=== PATIENT | female | born 1965 | race Caucasian/White ===

== ENCOUNTER 2018-11-14 11:45 | Observation (INO) | payer OTHER ==
[~2018-11-14] VITALS: Ht 157.5 cm; Wt 81.6 kg
[~2018-11-14 11:45] MED LIST: ACET-787 PO; ATI.5 PO; FURO-572 PO; GABA300C PO; IBUP200C97 PO; INSU100S45 SUBQ; LANTUS SUBQ; LISI-420 PO; METF500T PO; ROSU20TA1 PO
--- NOTE | 2018-11-14 11:45 | NUR ---
Patient BIBA BLS, transferred to bed 9. RN evaluating patient at bedside.
[2018-11-14 11:57] VITALS: BP 81/46
--- NOTE | 2018-11-14 11:57 | NUR ---
PT C/O GENERAL WEAKNESS AFTER BEING NON-COMPLIANT WITH MEDICATIONS X2 WEEKS. PT REPORTS FALLING 2X LAST NIGHT. 1ST AT 0230 GETTING OUT OF BED, AND HIT TOP OF HEAD ON TILE FLOOR. 2ND TIME GETTING OUT OF BED AT 0500, FELL ON RT SIDE, STATES SHE HIT RT SIDE OF HEAD BEHIND EAR. PT DENIES LOSS OF CONSCIOUSNESS, PERRLA, AAOX4. PT HAS SLURRED SPEACH FROM HISTORY OF [facility], PT IS NOT ON BLOOD THINERS. MEDHX:CVA, SPEECH DEFICIT, DM, HTN, DEPRESSION, SCHITZOPHRENIA
--- NOTE | 2018-11-14 12:05 | NUR ---
Dr. Servin evaluating patient at bedside.
[2018-11-14] MEDS ORDERED: NACL 0.9% 2,000 ML IV SCH (12:19)
--- NOTE | 2018-11-14 13:01 | NUR ---
LAB AT BEDSIDE
--- NOTE | 2018-11-14 13:33 | NUR ---
pt normotensive after 1 bolus
--- NOTE | 2018-11-14 13:35 | NUR ---
pt to CT at this time
[2018-11-14 13:42] LABS: BASOPHILS % (AUTO) 0.2 % (0.0-2.0); EOSINOPHILS # (AUTO) 0.1 K/uL (0-0.4); EOSINOPHILS % (AUTO) 1.1 % (0.0-4.0); HEMATOCRIT 32.5 % (36-48); HEMOGLOBIN 10.6 g/dL (12.0-16.0); MEAN CORPUSCULAR HEMOGLOBIN 30 pg (27-31); MEAN CORPUSCULAR HGB CONC 33 g/dL (33-37); MEAN CORPUSCULAR VOLUME 92.9 fL (80-94); MONOCYTES # (AUTO) 0.6 K/uL (0.8-1.0); MONOCYTES % (AUTO) 4.8 % (1.7-9.3); NEUTROPHILS # (AUTO) 9.8 K/uL (1.8-7.7); NEUTROPHILS % (AUTO) 71.9 % (42.2-75.2); PLATELET COUNT (AUTO) 282 K/uL (140-450); WHITE BLOOD COUNT (AUTO) 13.6 K/uL (4.8-10.8)
[2018-11-14 14:00] LABS: PROTHROMBIN TIME 9.9 secs (10.8-13.4)
--- NOTE | 2018-11-14 14:12 | NUR ---
PT RETURNED FROM CT. BP 81/36, ER MD MADE AWARE. 2 BOLUS RUNNING AT THIS TIME. PT AAOX4, O2 SAT 100%, PULSE 82.
[2018-11-14 14:13] LABS: ACETAMINOPHEN 2.9 ug/ml (10-30); ALBUMIN 3.3 g/dL (3.4-5.0); ANION GAP 16.4 (8-16); ASPARTATE AMINOTRANSFERASE 34 U/L (15-37); CARBON DIOXIDE 24.1 mmol/L (21-32); CHLORIDE 99 mmol/L (98-107); CREATININE 2.6 mg/dL (0.6-1.3); GFR ARICAN-AMERICAN 25 mL/min (>90); GLUCOSE 122 mg/dL (74-106); MAGNESIUM 1.8 mg/dL (1.8-2.4); POTASSIUM 3.5 mmol/L (3.5-5.1); SALICYLATE < 2.8 mg/dL (2.8-20.0); SODIUM SERUM 136 mmol/L (136-145); TOTAL BILIRUBIN 0.5 mg/dL (0.0-1.0); UREA NITROGEN, BLOOD 27 mg/dL (7-18)
--- NOTE | 2018-11-14 14:38 | NUR ---
PT UNABLE TO PROVIDE URINE, ER MADE AWARE.
[2018-11-14 14:43] LABS: ACETONE, SERUM NEGATIVE (NEGATIVE); CKMB RELATIVE INDEX 4.4 (0.0-2.5); CREATINE KINASE MB 27.9 ng/mL (0-3.6)
--- NOTE | 2018-11-14 15:05 | NUR ---
# 14 FR Urinary catheter inserted utilizing sterile technique. Immediate return of 500 ml CLEAR YELLOW Urine noted. Urine sample collected and sent to lab. Pt tolerated procedure WELL.
[2018-11-14 16:17] LABS: APPEARANCE,URINE CLEAR (CLEAR); BILIRUBIN,URINE 1+ (NEGATIVE); BLOOD, URINE TRACE-I (NEGATIVE); COLOR,URINE DARK YELLOW (YELLOW); LEUKOCYTE ESTERASE ,URINE NEGATIVE (NEGATIVE); NITRITE, URINE NEGATIVE (NEGATIVE); UGLUCOSE NEGATIVE (NEGATIVE)
[2018-11-14 16:28] LABS: BARBITURATE, URINE NEG. ng/ml (NEG <=200); BENZODIAZEPINE, URINE POS. ng/mL (NEG <=200); CANNABINOID, URINE NEG. ng/mL (NEG <=50); COCAINE, URINE NEG. ng/mL (NEG <=300); OPIATE, URINE POS. ng/mL (NEG <=2000); PHENCYCLIDINE SCREEN,URINE NEG. ng/mL (NEG <=25)
[2018-11-14 16:34] LABS: WBC,URINE 0-5 /HPF (0-5)
--- NOTE | 2018-11-14 17:04 | NUR ---
PT IN BED, SIDE RAILS UP X1, BED IN LOWEST POSITION, VSS. PT BP 91/55 AT THIS TIME, O2 SAT 98%. PT AAOX4. PT STATES THAT SHE IS HUMGRY AND THIRSTY. PROVIDED PT WITH ICE CHIPS AND CRACKERS AT THIS TIME. WAITING FOR ADMISSION
--- NOTE | 2018-11-14 18:20 | NUR ---
RECEIVED REPORT FROM ED RN. AOX3. NO C/O PAIN OR DISCOMFORT. STATES SHE IS "TIRED". PT IS AMBULATORY. IV SITE PATENT AND ASYMPTOMATIC. ABRASION TO RIGHT KNEE, S/P FALL PRIOR TO ADMISSION. PLACED ON FALL RISK PRECAUTIONS. OBTAINED MRSA SWAB. ALL OTHER SAFETY PRECAUTIONS IN PLACE, WILL CONTINUE TO MONITOR.
--- NOTE | 2018-11-14 18:20 | NUR ---
Patient will be admitted to care of DR MARIE. Admited to TELE VIA GURDL W/ VSS. Will go to room 110B. Belongings list completed. Report to [facility].
[2018-11-14 18:25] VITALS: BP 107/48
[2018-11-14] MEDS ORDERED: DEXTROSE 50% 50 ML SYR IVP PRN (18:40)
--- NOTE | 2018-11-14 19:25 | NUR ---
ENDORSED POC TO GRAINING PRESS OPERATOR RN. PT IN STABLE CONDITION. ENDORSED TO F/U ON HOME MEDS- NO FREQUENCY.
--- NOTE | 2018-11-14 19:26 | NUR ---
RECEIVED PT AT BEDSIDE FROM DAY SHIFT NURSEHOUSTON. PT SLEEPING IN THE BED. BREATHING EVENLY AND UNLABORED. NO S/S OF SOB OR DISCOMFORT. IV SITE ON R WRIST, SALINE LOCK. BED IN LOW POSITION. CALL LIGHT WITHIN REACH. WILL CONTINUE TO MONITOR.
[2018-11-14 20:00] VITALS: BP 113/78
[2018-11-14] MEDS: BLOOD GLUCOSE MONITORING 1 DEV DEV FS SCH (20:30)
[2018-11-14] MEDS: INSULIN LISPRO SLIDING SCALE 100 UNITS/ML VIAL SUBQ PRN (20:37)
[2018-11-14] MEDS ORDERED: MORP30CE21 PO (20:55)
[2018-11-14] MEDS ORDERED: TIZA4CAP PO (21:05)
[2018-11-14] MEDS ORDERED: TRAZ-343 PO (21:05)
[2018-11-14] MEDS ORDERED: FLUO20TA35 PO (21:05)
[2018-11-14] MEDS ORDERED: BUS5 PO (21:05)
--- NOTE | 2018-11-14 21:54 | NUR ---
CALLED DR. MARIE FOR PT C/O PAIN, STATED OK TO CONTINUE/ ORDER NORCO 10/325MG Q6H PRN PAIN. WILL PUT IN ORDER AND CONTINUE WITH ORDERS.
--- NOTE | 2018-11-14 22:00 | NUR ---
CHECKED ON PT, PT SLEEPING, NO DISTRESS NOTED, CALL LIGHT WITHIN REACH, WILL CONTINUE TO MONITOR.
--- NOTE | 2018-11-14 23:44 | NUR ---
PT SLEEPING, CHECKED ON V/S WITHIN PT BASELINE, CALL LIGHT WITHIN REACH, WILL CONTINUE TO MONITOR.
[2018-11-15] VITALS: BP 102/48
[2018-11-15] MEDS: HYDROcodone/APAP 10/325 MG 1 TAB TAB PO PRN ×3 (00:47→15:53)
--- NOTE | 2018-11-15 00:47 | NUR ---
PT C/O PAIN, PAIN MEDICATION PER DR ORDER ADMINISTERED, PT TOLERATED WELL, NO DISTRESS NOTED, CALL LIGHT WITHIN REACH, WILL CONTINUE TO MONITOR.
--- NOTE | 2018-11-15 03:45 | NUR ---
CHECKED ON PT, PT SLEEPING, V/S TAKEN, WNL, CALL LIGHT WITHIN REACH, WILL CONTINUE TO MONITOR.
[2018-11-15 04:00] VITALS: BP 98/53
--- NOTE | 2018-11-15 05:16 | NUR ---
PT UNABLE TO URINATE, CALLED DR. ARGUELLES REGARDING THERE IS 700ML OF URINE SHOWN ON THE BLADDER SCANNER, AND PT UNABLE TO URINATE, STATED TO INSERT MATOS CATH. WILL PUT IN ORDERS AND CONTINUE WITH ORDERS.
--- NOTE | 2018-11-15 05:30 | NUR ---
MATOS CATH INSERTED, PT TOLERATED WELL, 550ML URINE COLLECTED IMMEDIATELY, PT RESTING, NO DISTRESS NOTED, CALL LIGHT WITHIN REACH, WILL CONTINUE TO MONITOR.
[2018-11-15] MEDS: BLOOD GLUCOSE MONITORING 1 DEV DEV FS SCH ×3 (06:00→16:41)
[2018-11-15] MEDS: INSULIN LISPRO SLIDING SCALE 100 UNITS/ML VIAL SUBQ PRN ×3 (06:16→16:00)
--- NOTE | 2018-11-15 07:21 | NUR ---
ENDORSED PT TO DAY SHIFT NURSE HALINA RN, PT STABLE, NO DISTRESS NOTED, CALL LIGHT WITHIN REACH.
--- NOTE | 2018-11-15 07:24 | NUR ---
RECEIVED HANDOFF REPORT FROM MILL OPERATOR HELPER NURSE. PT IS RESTING QUIETLY IN BED. ALL SAFETY MEASURES ARE IN PLACE. PT APPEARS STABLE AND IN NO APPARENT DISTRESS. WILL CONTINUE TO MONITOR.
[2018-11-15 08:00] VITALS: BP 113/40
[2018-11-15 08:45] LABS: ALBUMIN 2.8 g/dL (3.4-5.0); ANION GAP 13.7 (8-16); CARBON DIOXIDE 23.1 mmol/L (21-32); CREATININE 1.8 mg/dL (0.6-1.3); POTASSIUM 3.8 mmol/L (3.5-5.1); TOTAL BILIRUBIN 0.6 mg/dL (0.0-1.0)
[2018-11-15 08:50] LABS: BASOPHILS % (AUTO) 0.2 % (0.0-2.0); EOSINOPHILS # (AUTO) 0.1 K/uL (0-0.4); HEMATOCRIT 28.4 % (36-48); HEMOGLOBIN 9.4 g/dL (12.0-16.0); LYMPHOCYTES # (AUTO) 2.7 K/uL (2.5-16.5); LYMPHOCYTES % (AUTO) 20.6 % (20.5-51.1); MEAN CORPUSCULAR HEMOGLOBIN 31 pg (27-31); MEAN CORPUSCULAR HGB CONC 33 g/dL (33-37); MEAN CORPUSCULAR VOLUME 93.2 fL (80-94); MONOCYTES # (AUTO) 1.1 K/uL (0.8-1.0); MONOCYTES % (AUTO) 8.1 % (1.7-9.3); NEUTROPHILS # (AUTO) 9.1 K/uL (1.8-7.7); NEUTROPHILS % (AUTO) 70.1 % (42.2-75.2); PLATELET COUNT (AUTO) 251 K/uL (140-450); RED BLOOD CELL COUNT(AUTO) 3.05 MIL/uL (4.20-5.40); RED CELL DISTRIBUTION WIDTH 13.9 % (11.6-13.7)
[2018-11-15] MEDS ORDERED: LISINOPRIL 20 MG TAB PO SCH (09:00)
--- NOTE | 2018-11-15 09:30 | NUR ---
PT IS AWAKE IN BED PT IS STABLE AND IN NO APPARENT DISTRESS. ALL SAFETY MEASURES ARE IN PLACE. WILL CONTINUE TO MONITOR.
--- NOTE | 2018-11-15 11:30 | NUR ---
INFORMED PT OF DISCHARGE PT STATED SHE WOULD CONTACT FAMILY. PT IS STABLE IN NO APPARENT DISTRESS, ALL SAFETY MEASURES ARE IN PLACE. WILL CONTINUE TO MONITOR,
[2018-11-15 12:00] VITALS: BP 93/60
--- NOTE | 2018-11-15 13:45 | NUR ---
FREQUENT ROUND PT IS STABLE AND APPEARS IN NO APPARENT DISTRESS. ALL SAFETY MEASURES ARE IN PLACE WILL CONTINUE TO MONITOR.
[2018-11-15 16:00] VITALS: BP 110/46
--- NOTE | 2018-11-15 17:05 | NUR ---
FREQUENT ROUNDING PT IS STABLE NO APPARENT DISTRESS ALL SAFETY MEASURES ARE IN PLACE
--- NOTE | 2018-11-15 19:47 | NUR ---
RECEIVED HAND OFF REPORT FROM [employer] SPECIALIST NURSE PT IS AWAKE IN BED. PT IS STABLE APPEARS IN NO APPARENT DISTRESS. ALL SAFETY MEASURES ARE IN PLACE. WILL CONTINUE TO MONITOR. Addendum: 11/15/18 at 1950 by Julianne Guzmán RN ENDORSED [employer] SPECIALIST NURSE.
--- NOTE | 2018-11-15 19:49 | NUR ---
ENDORSED FIELD CONTRACTOR NURSE.
--- NOTE | 2018-11-15 19:50 | NUR ---
RECEIVED BEDSIDE REPORT FROM DAY SHIFT NURSE HALINA RN, PT STABLE, NO DISTRESS NOTED, IV TO R WRIST 24G, PATENT INTACT, PT ON ROOM AIR, NO SOB, INITIAL ASSESSMENT DONE, ALL SAFETY PRECAUTION MET, CALL LIGHT WITHIN REACH, WILL CONTINUE TO MONITOR.
[2018-11-15 20:00] VITALS: BP 143/80
--- NOTE | 2018-11-15 20:10 | NUR ---
PT C/O UNCOMFORTABLE WITH MATOS, MATOS CATH D/C, PT IS EXPECTED TO GO HOME, 400ML URINE COLLECTED IN MATOS BAG, PT TOLERATED WELL, NO DISTRESS NOTED, WILL MONITOR FOR PT URINATION.
--- NOTE | 2018-11-15 21:20 | NUR ---
ALL D/C PAPER SIGNED, ALL BELONGING WITH PT, PT IN STABLE CONDITION, IV TAKEN OUT, CATH INTACT, CALL LIGHT WITHIN REACH, AWAITING FOR PT MEDICATION FROM PHARMACY. WILL CONTINUE TO NIVIA.
--- NOTE | 2018-11-15 21:33 | NUR ---
PT WAS ABLE TO AMBULATE TO RESTROOM AND URINATED NORMALLY, PT IS BACK IN BED, NO DISTRESS NOTED, CALL LIGHT WITHIN REACH, WILL CONTINUE TO MONITOR.
--- NOTE | 2018-11-15 21:54 | NUR ---
OBTAINED MEDICATION FROM PHARMACY, GIVEN TO PT, PT VERIFIED ALL MEDICATIONS, STATED IT IS ALL THERE.
--- NOTE | 2018-11-15 22:05 | NUR ---
PT LEFT UNIT IN STABLE CONDITION TO HOME BY SELF, NO DISTRESS NOTED, WRIST BAND TAKEN OUT, TELE MONITOR TAKEN OUT.
--- NOTE | 2018-11-16 08:46 | NUR ---
Wound consult not done, pt. discharged.
--- NOTE | 2018-11-16 10:45 | NUR ---
called office of Dr Callaway talked to Alissa and set up a follow-up appointment on November 18, 2018 1110 am @ [address] [facility], [address] . Left message to patient's pbx manager phone [phone]. Waiting for call back.
--- NOTE | 2018-11-17 09:20 | NUR ---
followed up call, called patient's manager roofing's phone [phone] , this phone number was given by Shaneka Turpin father of patient yesterday since patient has no phone, left a message to call back regarding follow-up appointment with PCP.
--- NOTE | 2018-11-17 15:04 | NUR ---
called Shaneka father of patient and asked him if he was able to get hold of her daughter Omaira. He said that he was not able to. Informed him that i will cancell her follow up appointment schedule tomorrow since we are not able to contact her. Instructed Shaneka to inform daughter as soon as he contact her to make follow-up visit with PCP, verbalized understanding. called office of Dr Callaway [phone] spoke to Alissa and cancelled her follow-up visit appointment.
== END 2018-11-15 22:05 | disposition home or self-care (01) ==
LOC: MED 11:45 → MTU 17:59 → UNDOADMIN 17:59 → MTU 21:27 → UNDODISIN 11-15 22:05
PROVIDERS: ADMIT Internal Medicine Pulmonary Disease; ATTEND Internal Medicine Pulmonary Disease
DX: R55 Syncope and collapse (principal); E78.5 Hyperlipidemia, unspecified; F41.1 Generalized anxiety disorder; F12.10 Cannabis abuse, uncomplicated; R53.1 Weakness; G89.29 Other chronic pain; R74.8 Abnormal levels of other serum enzymes; E11.22 Type 2 diabetes mellitus with diabetic chronic kidney disease; I12.9 Hypertensive chronic kidney disease with stage 1 through stage 4 chronic kidney disease, or unspecified chronic kidney disease; N18.4 Chronic kidney disease, stage 4 (severe); Z86.73 Personal history of transient ischemic attack (TIA), and cerebral infarction without residual deficits; Z91.19 Patient's noncompliance with other medical treatment and regimen; F15.10 Other stimulant abuse, uncomplicated
CPT/HCPCS: 36415; 36600; 70450; 71045; 80053; 80305; 81001; 82009; 82550; 82553; 82803; 82948; 83605; 83735; 84484; 85025; 85610; 85730; 87040; 87081; 87086; 93005; 96372; 99285; G0378; G0480; G0482; J1815; Q0092; 96360; 96361